=== PATIENT | female | born 1995 | race Caucasian/White ===

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

== ENCOUNTER 2017-02-13 09:19 | Emergency (ER) | payer OTHER ==
[2017-02-13 09:48] VITALS: BP 100/65
--- NOTE | 2017-02-13 10:41 | UC ---
Complaint Female HPI - HPI Summary HPI Summary: Pt presents to the ED through amb triage. Pt with 2 days dysuria, frequency and urgency. Pt has been using OTC pyridium intermittently with relief. No fevers, chills. No nausea, vomiting. no back pain. no vaginal discharge or odor. LMP 3week, + BCP Pt's medications reviewed at this visit. - History Of Current Complaint Chief Complaint: UCGU Stated Complaint: URINARY Time Seen by Provider: 02/13/17 09:58 Hx Obtained From: Patient Hx Last Menstrual Period: 3 weeks ago Onset/Duration: Gradual Onset Timing: Constant Severity Initially: Mild Severity Currently: Mild Aggravating Factor(s): Urination Associated Signs And Symptoms: Negative: Fever, Back Pain, Nausea - Allergies/Home Medications Allergies/Adverse Reactions: Allergies Allergy/AdvReac Type Severity Reaction Status Date / Time Amoxicillin Allergy Intermediate Rash Verified 02/13/17 09:48 Oxycodone Allergy Vomiting Verified 02/13/17 09:48 PMH/Surg Hx/FS Hx/Imm Hx Previously Healthy: Yes Endocrine History Of: Denies: Diabetes Cardiovascular History Of: Denies: Hypertension, Pacemaker/ICD Neurological History Of: Reports: Migraine - PT STATES MONTHLY - Surgical History Surgical History: Yes Surgery Procedure, Year, and Place: b/l club feet at 7 mos old, 1997, [facility]. 10/2014 right foot calcium removed -[facility] [place]- DR. ZIEGLER - Family History Known Family History: Positive: Hypertension, Other - thyroid - Social History Occupation: Student Lives: With Family Alcohol Use: Occasionally Substance Use Type: None Smoking Status (MU): Never Smoked Tobacco Have You Smoked in the Last Year: No Household Exposure Type: Cigarettes - Immunization History Vaccination Up to Date: Yes Review of Systems Constitutional: Negative Skin: Negative Eyes: Negative ENT: Negative Respiratory: Negative Cardiovascular: Negative Gastrointestinal: Negative Genitourinary: Dysuria, Hematuria, Frequency, Urgency Motor: Negative Neurovascular: Negative Musculoskeletal: Negative Neurological: Negative Psychological: Negative All Other Systems Reviewed And Are Negative: Yes Physical Exam Triage Information Reviewed: Yes Appearance: Well-Appearing, No Pain Distress, Well-Nourished Vital Signs: Initial Vital Signs Temp 98.3 F 02/13/17 09:42 Pulse 65 02/13/17 09:42 Resp 20 02/13/17 09:42 BP 100/65 02/13/17 09:42 Pulse Ox 100 02/13/17 09:42 Vital Signs Reviewed: Yes Eyes: Negative: Discharge ENT: Positive: Hearing grossly normal Neck: Positive: Supple Respiratory: Positive: Lungs clear, Normal breath sounds, No respiratory distress Cardiovascular: Positive: RRR, No Murmur Abdominal Exam: Normal Abdomen Description: Positive: Nontender, No Organomegaly, Soft. Negative: CVA Tenderness (R), CVA Tenderness (L) Bowel Sounds: Positive: Present Musculoskeletal Exam: Normal Neurological Exam: Normal Psychological Exam: Normal Complaint Female Dx - Course Course Of Treatment: Pt with dysuria, hematuria, urgency x 2 days. no fever, chill. + UTI. Rx; macrobid, pyridium. hydrate. motrin/apap. advised alternate control - Differential Dx/Diagnosis Provider Diagnoses: UTI Discharge - Discharge Plan Condition: Stable Disposition: HOME Prescriptions: Nitrofurantoin Monohyd Macro [Macrobid] 100 mg PO BID #14 cap Phenazopyridine TAB* [Pyridium 100 mg TAB*] 100 mg PO TID #9 tab Patient Education Materials: Urinary Tract Infection in Women (ED) Referrals: Andrew Kingston MD [Primary Care Provider] - Additional Instructions: - stay well hydrated. Drink plenty of non-alcoholic, non-caffinated beverages - Take antibiotic as prescribed until gone. It is recommended you use an alternate form of control while taking antibiotics with your control polls. - your urine has been sent for additional testing. If you need a different antibiotic - you will receive a call from a member of your care team - Take pyridium as prescribed for discomfort. This will make your urine blaze orange - this is normal - Okay to alternate ibuprofen (Advil, motrin) and tylenol every 3 hours for pain. Take with food Call your doctor or return with questions or concerns
== END 2017-02-13 10:49 | disposition home or self-care (01) ==
LOC: UCCORT 09:19
DX: N39.0 Urinary tract infection, site not specified (principal); R31.9 Hematuria, unspecified; G43.909 Migraine, unspecified, not intractable, without status migrainosus; Z88.1 Allergy status to other antibiotic agents; Z88.5 Allergy status to narcotic agent; Z77.22 Contact with and (suspected) exposure to environmental tobacco smoke (acute) (chronic)
CPT/HCPCS: 81003; 87086; 99211; G0463

== ENCOUNTER 2017-03-17 13:28 | Emergency (ER) | payer OTHER ==
[2017-03-17 14:50] VITALS: BP 120/73
--- NOTE | 2017-03-17 17:12 | UC ---
Complaint Female HPI - HPI Summary HPI Summary: ONE MONTH AGO HAD DIAGNOSIS OF UTI; WAS PRESCIBED ANTIBIOTICS, DID NOT FINISH THEM. FEELS LIKIE SYMPTOMS HAVE RETURNED FREQUENCY, URGENCY, BURNING WITH URINATION FOR TWO WEEKS. NO ABDOMINAL PIAN. NO BACK PAIN. NO FEVER. - History Of Current Complaint Chief Complaint: UCGU Stated Complaint: URINARY COMPLAINT Time Seen by Provider: 03/17/17 14:47 Hx Obtained From: Patient Hx Last Menstrual Period: 02/26/17 Onset/Duration: Gradual Onset, Lasting Weeks, Still Present Timing: Intermittent Severity Initially: Mild Severity Currently: Moderate Pain Intensity: 0 Pain Scale Used: 0-10 Numeric Character: Dull, Burning Aggravating Factor(s): Urination Associated Signs And Symptoms: Positive: Negative. Negative: Fever, Back Pain, Vaginal Discharge, Nausea, Vomiting(# Of Episodes =) - Risk Factors Ectopic Risk Factor: Negative - Allergies/Home Medications Allergies/Adverse Reactions: Allergies Allergy/AdvReac Type Severity Reaction Status Date / Time Amoxicillin Allergy Intermediate Rash Verified 03/17/17 14:50 Oxycodone Allergy Vomiting Verified 03/17/17 14:50 PMH/Surg Hx/FS Hx/Imm Hx Previously Healthy: Yes - Surgical History Surgical History: Yes Surgery Procedure, Year, and Place: b/l club feet at 7 mos old, 1997, [facility]. 10/2014 right foot calcium removed -[facility] [place]- DR. ZIEGLER - Family History Known Family History: Positive: Hypertension, Other - thyroid - Social History Occupation: Employed Full-time Lives: With Family Alcohol Use: Occasionally Substance Use Type: None Smoking Status (MU): Never Smoked Tobacco Have You Smoked in the Last Year: No Household Exposure Type: Cigarettes - Immunization History Most Recent Influenza Vaccination: NONE Most Recent Tetanus Shot: UTD Most Recent Pneumonia Vaccination: N/A Vaccination Up to Date: Yes Review of Systems Constitutional: Negative Skin: Negative Eyes: Negative ENT: Negative Respiratory: Negative Cardiovascular: Negative Gastrointestinal: Negative Genitourinary: Dysuria, Frequency, Urgency Motor: Negative Neurovascular: Negative Musculoskeletal: Negative Neurological: Negative Psychological: Negative All Other Systems Reviewed And Are Negative: Yes Physical Exam Triage Information Reviewed: Yes Appearance: Well-Appearing, No Pain Distress, Well-Nourished Vital Signs: Initial Vital Signs Temp 98.7 F 03/17/17 14:45 Pulse 83 03/17/17 14:45 Resp 14 03/17/17 14:45 BP 120/73 03/17/17 14:45 Pulse Ox 100 03/17/17 14:45 Vital Signs Reviewed: Yes Eye Exam: Normal ENT Exam: Normal Dental Exam: Normal Neck exam: Normal Respiratory Exam: Normal Respiratory: Positive: Chest non-tender, Lungs clear, Normal breath sounds, No respiratory distress, No accessory muscle use Cardiovascular Exam: Normal Cardiovascular: Positive: RRR, No Murmur, Pulses Normal Abdominal Exam: Normal Abdomen Description: Positive: Nontender, No Organomegaly. Negative: CVA Tenderness (R), CVA Tenderness (L) Musculoskeletal Exam: Normal Neurological Exam: Normal Psychological Exam: Normal Skin Exam: Normal Complaint Female Dx - Differential Dx/Diagnosis Differential Diagnosis/HQI/PQRI: Urinary Tract Infection Provider Diagnoses: URINARY TRACT INFECTION Discharge - Discharge Plan Condition: Stable Disposition: HOME Prescriptions: Phenazopyridine TAB* [Pyridium 100 mg TAB*] 100 mg PO TID PRN #15 tab PRN Reason: Pain Sulfamethox/Trimethoprim DS* [Bactrim DS 800/160 TAB*] 1 tab PO BID #10 tab Patient Education Materials: Urinary Tract Infection in Women (ED) Referrals: Andrew Kingston MD [Primary Care Provider] -
== END 2017-03-17 15:17 | disposition home or self-care (01) ==
LOC: UCCORT 13:28
DX: N39.0 Urinary tract infection, site not specified (principal); Z87.440 Personal history of urinary (tract) infections; Z32.02 Encounter for pregnancy test, result negative; Z88.1 Allergy status to other antibiotic agents; Z88.5 Allergy status to narcotic agent; Z77.22 Contact with and (suspected) exposure to environmental tobacco smoke (acute) (chronic)
CPT/HCPCS: 81003; 84702; 87086; 99212; G0463

== ENCOUNTER 2018-11-13 15:08 | Emergency (ER) | payer BC, OTHER ==
[2018-11-13 17:11] VITALS: BP 111/73
--- NOTE | 2018-11-13 17:29 | UC ---
Throat Pain/Nasal Robert HPI - HPI Summary HPI Summary: 23 year old female presents with 3 day history of sore throat. Associated with nasal congestion, post-nasal drip, and occasional non-productive cough. Denies fever, chills, ear pain, dysphagia, chest pain, shortness of breath, abdominal pain, nausea, vomiting, or diarrhea. - History of Current Complaint Chief Complaint: UCRespiratory Stated Complaint: SORE THROAT Time Seen by Provider: 11/13/18 17:03 Hx Obtained From: Patient Hx Last Menstrual Period: 10/30/18 Pain Intensity: 5 - Allergies/Home Medications Allergies/Adverse Reactions: Allergies Allergy/AdvReac Type Severity Reaction Status Date / Time amoxicillin Allergy Severe FULL BODY Verified 11/13/18 17:02 RASH oxycodone Allergy Unknown Vomiting Verified 11/13/18 17:02 Home Medications: Home Medications Dextroamphetamine/Amphetamine [Adderall 20 mg Tablet] 1 tab PO BID 11/13/18 [ History Confirmed 11/13/18] Ibuprofen TAB* [Advil TAB*] 800 mg PO Q6H PRN 11/13/18 [History Confirmed ] Migrane Rx PRN 11/13/18 [History] traZODone TAB* [Desyrel TAB*] 50 mg PO BEDTIME 11/13/18 [History Confirmed 11/13] PMH/Surg Hx/FS Hx/Imm Hx Previously Healthy: Yes Neurological History: Migraine - Surgical History Surgical History: Yes Surgery Procedure, Year, and Place: b/l club feet at 7 mos old, 1997, [facility]. 10/2014 [place] [place] - Family History Known Family History: Positive: Hypertension, Other - thyroid - Social History Occupation: Student Lives: Dormitory/Roommates Alcohol Use: Occasionally Substance Use Type: None Smoking Status (MU): Never Smoked Tobacco Have You Smoked in the Last Year: No Household Exposure Type: Cigarettes - Immunization History Most Recent Influenza Vaccination: NONE Most Recent Tetanus Shot: UTD Most Recent Pneumonia Vaccination: N/A Vaccination Up to Date: Yes Review of Systems All Other Systems Reviewed And Are Negative: Yes Constitutional: Negative: Fever, Chills Skin: Negative: Rash Eyes: Negative: Drainage, Eye Redness ENT: Positive: Sore Throat, Nasal Discharge, Sinus Congestion. Negative: Ear Ache, Sinus Pain/Tenderness Respiratory: Positive: Cough. Negative: Shortness Of Breath Cardiovascular: Negative: Palpitations, Chest Pain Gastrointestinal: Negative: Abdominal Pain, Vomiting, Diarrhea, Nausea Genitourinary: Positive: Negative Musculoskeletal: Positive: Negative Neurological: Positive: Negative Is Patient Immunocompromised?: No Physical Exam - Summary Physical Exam Summary: GENERAL APPEARANCE: Well developed, well nourished, alert and cooperative, and appears to be in no acute distress. EYES: Conjunctiva clear. No drainage. Vision is grossly intact. EARS: External auditory canals and tympanic membranes clear, hearing grossly intact. NOSE: Mild-moderate nasal congestion. No nasal discharge. THROAT: Mild pharyngeal erythema with cobblestoneing. No tonsilar inflammation, swelling, exudate, or lesions. Oral cavity normal. Teeth and gingiva in good general condition. NECK: Neck supple, non-tender without lymphadenopathy. CARDIAC: Normal S1 and S2. No S3, S4 or murmurs. Rhythm is regular. There is no peripheral edema, cyanosis or pallor. Extremities are warm and well perfused. Capillary refill is less than 2 seconds. LUNGS: Clear to auscultation without rales, rhonchi, wheezing or diminished breath sounds. Dry, non-productive cough. ABDOMEN: Positive bowel sounds. Soft, nondistended, nontender. No guarding or rebound. No masses or hepatosplenomegally. MUSKULOSKELETAL: ROM intact to all extremities. No joint erythema or tenderness. Normal muscular development. Normal gait. SKIN: Skin normal color, texture and turgor with no lesions or eruptions. Triage Information Reviewed: Yes Vital Signs: Initial Vital Signs Temp 98.9 F 11/13/18 17:02 Pulse 94 11/13/18 17:02 Resp 105 11/13/18 17:02 BP 111/73 11/13/18 17: Pulse Ox 97 11/13/18 17:02 Vital Signs Reviewed: Yes Diagnostics - Laboratory Diagnostic Studies Completed/Ordered: Rapid strep negative Throat Pain/Nasal Course/Dx - Course Course Of Treatment: 23 year old female presents with 3 day history of sore throat. Associated with nasal congestion, post-nasal drip, and occasional non- productive cough. Denies fever, chills, ear pain, dysphagia, chest pain, shortness of breath, abdominal pain, nausea, vomiting, or diarrhea. Afebrile. VSS. Exam reveals young adult female in acute distress with mild-moderate nasal congestion, pharyngeal erythema with cobblestoning, no tonsilar swelling or exudate, clear bilateral breath sounds, a non-productive cough, and otherwise unremarkable exam. Rapid strep negative. Recommending symptomatic treatment for a viral URI. She is to follow up here or with her PCP in 7 days if no improvement in symptoms. Anticipatory guidance and warning symptoms reviewed with patient. Verbalizes understanding and agrees with POC. - Differential Dx/Diagnosis Differential Diagnosis/HQI/PQRI: Influenza, Otitis Media, Pharyngitis, Sinusitis , URI Provider Diagnosis: Viral URI with cough Discharge - Sign-Out/Discharge Documenting (check all that apply): Patient Departure All imaging exams completed and their final reports reviewed: No Studies - Discharge Plan Condition: Stable Disposition: HOME Prescriptions: Benzonatate CAP* [Tessalon 100 MG CAP*] 100 mg PO TID PRN #30 cap PRN Reason: Cough Fluticasone NASAL SPRAY 50MCG* [Flonase NASAL SPRAY 50MCG*] 2 spray BOTH NARES DAILY #1 btl Patient Education Materials: Upper Respiratory Infection (ED) Referrals: Andrew Kingston MD [Primary Care Provider] - Additional Instructions: Your history and exam are consistent with a viral upper respiratory infection. Viral infections do not respond to antibiotics and are limited to the treatment of symptoms. Viral infections typically run their course in 7-10 days. Drink plenty of fluids to avoid dehydration especially if you are running any fever. Use a saline rinse kit such as Neti Pot or NeilMed at least twice a day to help thin secretions and promote drainage of the sinuses. Use fluticasone (Flonase) nasal spray 2 sprays each nostril once daily. Use an over the counter decongestant such as Sudafed according to directions for congestion. Take over the counter acetaminophen (Tylenol) or ibuprofen (Advil, Motrin) according to directions as needed for pain or fever. Use salt water gargles several times a day if you have a sore throat. You may also use Chloraseptic spray or Cepacol lonzenges according to directions which contain a numbing medication and can provide some temporary relief from your sore throat. Return here or follow up with your primary care provider in 7 days if symptoms persist. Seek immediate medical attention in the emergency room if you have fever greater than 100.5 F despite taking acetaminophen or ibuprofen, have chest pain , difficulty breathing, are unable to swallow, or have any worsening of symptoms. - Billing Disposition and Condition Condition: STABLE Disposition: Home
== END 2018-11-13 17:51 | disposition home or self-care (01) ==
LOC: UCCORT 15:08
DX: J06.9 Acute upper respiratory infection, unspecified (principal); R05 Cough; Z88.0 Allergy status to penicillin; Z88.5 Allergy status to narcotic agent
CPT/HCPCS: 87651; 99201; G0463

== ENCOUNTER 2019-01-07 13:04 | Emergency (ER) | payer OTHER ==
[2019-01-07 14:55] VITALS: BP 129/66
--- NOTE | 2019-01-07 15:04 | UC ---
Complaint Female HPI - HPI Summary HPI Summary: 23-year-old female presents with complaints of one week history of dysuria, frequency, and urgency. States symptoms worsened today. Denies fever, chills, abdominal pain, back or flank pain, nausea, vomiting, hematuria, or dyspareunia. - History Of Current Complaint Chief Complaint: UCGU Stated Complaint: URINARY COMPLAINT Time Seen by Provider: 01/07/19 14:55 Hx Obtained From: Patient Hx Last Menstrual Period: 11/30/18 Pain Intensity: 4 - Allergies/Home Medications Allergies/Adverse Reactions: Allergies Allergy/AdvReac Type Severity Reaction Status Date / Time amoxicillin Allergy Severe FULL BODY Verified 01/07/19 14:51 RASH oxycodone Allergy Unknown Vomiting Verified 01/07/19 14:51 PMH/Surg Hx/FS Hx/Imm Hx Previously Healthy: Yes Neurological History: Migraine - Surgical History Surgical History: Yes Surgery Procedure, Year, and Place: b/l club feet at 7 mos old, 1997, [facility]. 10/2014 right foot calcium removed [place] [place]. 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 - Family History Known Family History: Positive: Hypertension, Other - thyroid - Social History Occupation: Student Lives: Dormitory/Roommates Alcohol Use: Weekly Substance Use Type: None Smoking Status (MU): Never Smoked Tobacco Type: eCigarettes Have You Smoked in the Last Year: No Household Exposure Type: Cigarettes - Immunization History Most Recent Influenza Vaccination: NONE Most Recent Tetanus Shot: UTD Most Recent Pneumonia Vaccination: N/A Vaccination Up to Date: Yes Review of Systems All Other Systems Reviewed And Are Negative: Yes Constitutional: Negative: Fever, Chills Respiratory: Positive: Negative Cardiovascular: Positive: Negative Gastrointestinal: Negative: Abdominal Pain, Vomiting, Diarrhea, Nausea Genitourinary: Positive: Dysuria, Frequency, Urgency. Negative: Hematuria, Vaginal/Penile Burning, Vaginal/Penile Itching, Vaginal/Penile Discharge, Ulceration/Lesion, Abnormal Bleeding Musculoskeletal: Positive: Negative Neurological: Positive: Negative Is Patient Immunocompromised?: No Physical Exam - Summary Physical Exam Summary: GENERAL APPEARANCE: Well developed, well nourished, alert and cooperative, and appears to be in no acute distress. CARDIAC: Normal S1 and S2. No S3, S4 or murmurs. Rhythm is regular. There is no peripheral edema, cyanosis or pallor. Extremities are warm and well perfused. Capillary refill is less than 2 seconds. Peripheral pulses intact. LUNGS: Clear to auscultation without rales, rhonchi, wheezing or diminished breath sounds. ABDOMEN: Positive bowel sounds. Soft, nondistended, nontender. No guarding or rebound. No masses or hepatosplenomegally. No CVA tenderness. MUSKULOSKELETAL: ROM intact to all extremities. No joint erythema or tenderness. Normal muscular development. Normal gait. SKIN: Skin normal color, texture and turgor with no lesions or eruptions. Triage Information Reviewed: Yes Vital Signs: Initial Vital Signs Temp 98.6 F 01/07/19 14:53 Pulse 81 01/07/19 14:53 Resp 16 01/07/19 14:53 BP 129/66 01/07/19 14:53 Pulse Ox 100 01/07/19 14:53 Vital Signs Reviewed: Yes Complaint Female Dx - Course Course Of Treatment: 23-year-old female presents with complaints of one week history of dysuria, frequency, and urgency. States symptoms worsened today. Denies fever, chills, abdominal pain, back or flank pain, nausea, vomiting, hematuria, or dyspareunia. Afebrile. Vital signs stable. Exam was overall unremarkable. Patient had already started taking Pyridium and we are unable to perform a point -of-care urinalysis. A urine culture was sent and is pending. Urine was negative. Based on patient's symptoms I will start treat her empirically for UTI with Bactrim DS 1 tab twice a day 5 days. She is to continue the over- the-counter Pyridium for the next 2 days for comfort. She is to return here or follow up with [facility] in 3 days if symptoms are not better. Anticipatory guidance and warning symptoms were reviewed with the patient. Verbalizes understanding and agrees with plan of care. - Differential Dx/Diagnosis Differential Diagnosis/HQI/PQRI: , Renal Colic, Sexually Transmitted Disease, Urinary Tract Infection Provider Diagnosis: UTI (urinary tract infection) Discharge - Sign-Out/Discharge Documenting (check all that apply): Patient Departure All imaging exams completed and their final reports reviewed: No Studies - Discharge Plan Condition: Stable Disposition: HOME Prescriptions: Sulfamethox/Trimethoprim DS* [Bactrim DS 800/160 TAB*] 1 tab PO BID #10 tab Patient Education Materials: Urinary Tract Infection in Women (ED) Referrals: Andrew Kingston MD [Primary Care Provider] - Additional Instructions: We were unable to test your urine for an infection in the clinic today due to the pyridium. We send a urine culture today to see what bacteria grow out. It will take 48-72 hours to get these results. Based on your symptoms we will start you on an antibiotic to treat for the infection. Start Bactrim DS 1 tab twice a day for 5 days. You may continue to take the over the counter Pyridium according to directions for next 2 days to help with the discomfort. Drink plenty of fluids. To help prevent urinary tract infections: 1) Be sure to wipe from front to back. 2) Urinate immediately after any sexual intercourse. 3) Avoid taking bubble baths. Follow up with your primary care provider in 3-5 day if symptoms do not improve. Seek immediate medical attention in the emergency room if you develop fever greater than 100.5 F, have severe abdominal pain, persistent vomiting, or any worsening of symptoms. - Billing Disposition and Condition Condition: STABLE Disposition: Home
== END 2019-01-07 15:15 | disposition home or self-care (01) ==
LOC: UCCORT 13:04
DX: N39.0 Urinary tract infection, site not specified (principal)
CPT/HCPCS: 84702; 87086; 99212; G0463